=== PATIENT | female | born 1955 | race Caucasian/White ===

== ENCOUNTER 2023-05-18 09:57 | Outpatient (OUT) | payer MEDICARE, OTHER, SELFPAY ==
--- NOTE | 2023-05-18 10:02 | MM_ITS ---
Patient Name: SULEMAN FRY MR#: [id number] : 1955 Exam Date: 05/18/2023 Ordering Doctor: DR SANJUANA LANDA RADIOLOGY REPORT PROCEDURE: MM TOMOSYNTHESIS SCREENING BI COMPARISON: MG MAMM SCREEN 3D ANJUM CAD, 04/16/2022. MG MAMM SCREEN 3D ANJUM CAD, 04/14/2021. INDICATIONS: Screening Calculator Name NCI Breast Cancer Risk Assessment Tool 5 Year Breast Cancer Risk 2.10% Lifetime Breast Cancer Risk 6.90% Personal Breast Cancer No Personal Ovarian Cancer No Treatments None Family Cancers Grandfather-maternal with brain cancer at age ~60; Grandmother-paternal with renal cancer at age ~60. LOCATION: [facility] BREAST COMPOSITION: Heterogeneously dense,which may obscure small masses. FINDINGS: DIAGNOSTIC CATEGORY 1--NEGATIVE. NO CHANGE FROM COMPARISON ASSESSMENT. Scattered benign-appearing calcifications are present. Scattered benign-appearing lymph nodes are present. RIGHT BREAST: No significant suspicious finding. LEFT BREAST: No significant suspicious finding. RECOMMENDATIONS: ROUTINE MAMMOGRAM AND CLINICAL EVALUATION IN 12 MONTHS. PLEASE NOTE: A NORMAL MAMMOGRAM DOES NOT EXCLUDE THE POSSIBILITY OF BREAST CANCER. A CLINICALLY SUSPICIOUS PALPABLE LUMP SHOULD BE BIOPSIED. Dictated by: Kong Valero MD on 05/18/2023 at 14:48 Approved by: Kong Valero MD on 05/18/2023 at 14:49
== END 2023-05-18 09:58 | disposition home or self-care (01) ==
LOC: MAMMO 09:57
PROVIDERS: PCP Physician Assistant; Visit Provider Physician Assistant
DX: Z12.31 Encounter for screening mammogram for malignant neoplasm of breast (principal); Z80.51 Family history of malignant neoplasm of kidney; Z80.8 Family history of malignant neoplasm of other organs or systems
CPT/HCPCS: 77063; 77067

== ENCOUNTER 2023-09-14 09:52 | Outpatient (OUT) | payer MEDICARE, OTHER, SELFPAY ==
--- NOTE | 2023-09-14 09:55 | XR_ITS ---
[place] [id number] Patient Name: SULEMAN FRY MRN: [id number] date: 1955 Sex: F Assigned Patient Location: RAD Current Patient Location: [facility] Accession/Order Number: [id number] Exam Date: 09/14/2023 10:00 Report Date: 09/14/2023 10:26 At the request of: SANJUANA SALCIDO Procedure: XR DEXA axial skeleton EXAMINATION: XR DEXA axial skeleton HISTORY: Estrogen Deficiency E28.39 COMPARISON: DEXA bone densitometry 03/02/2016, 01/13/2021 TECHNIQUE: Dual-energy X-ray absorptiometry (DXA) was performed. FINDINGS: SPINE ANALYSIS: Average bone mineral density is 1.011 g/cm2. T-score (standard deviation relative to young adult mean): -1.4 . -9.9% change since 2015. HIP ANALYSIS: Lowest bone mineral density is within the left femoral neck, 0.755 g/cm2. T-score (standard deviation relative to young adult mean): -2.0 . +1.5% change since 2020. XR/XR DEXA axial skeleton IMPRESSION: [employer] Classification: Osteopenia - Moderate Fracture Risk FRAX: Could not be calculated Electronically authenticated by: NADER FRENCH Date: 09/14/2023 10:26
== END 2023-09-14 09:53 | disposition home or self-care (01) ==
LOC: RAD 09:52
PROVIDERS: PCP Physician Assistant; Visit Provider Physician Assistant
DX: E28.39 Other primary ovarian failure (principal); M85.80 Other specified disorders of bone density and structure, unspecified site
CPT/HCPCS: 77080

== ENCOUNTER 2024-05-29 09:57 | Outpatient (OUT) | payer MEDICARE, OTHER, SELFPAY ==
--- NOTE | 2024-05-29 10:03 | MM_ITS ---
Patient Name: SULEMAN FRY MR#: [id number] : 1955 Exam Date: 05/29/2024 Ordering Doctor: DR SANJUANA LANDA RADIOLOGY REPORT PROCEDURE: MM TOMOSYNTHESIS SCREENING BI COMPARISON: MG MAMM SCREEN 3D ANJUM CAD, 04/16/2022. MM TOMOSYNTHESIS SCREENING BI, 05/18/2023. INDICATIONS: Screening Calculator Name NCI Breast Cancer Risk Assessment Tool 5 Year Breast Cancer Risk 2.20% Lifetime Breast Cancer Risk 6.60% Personal Breast Cancer No Personal Ovarian Cancer No Treatments None Family Cancers Grandfather-maternal with brain cancer at age ~60; Grandmother-paternal with renal cancer at age ~60. LOCATION: [facility] BREAST COMPOSITION: The breasts are heterogeneously dense,which may obscure small masses. FINDINGS: DIAGNOSTIC CATEGORY 1--NEGATIVE. NO CHANGE FROM COMPARISON ASSESSMENT. Scattered benign-appearing calcifications are present. Scattered benign-appearing lymph nodes are present. RIGHT BREAST: No significant suspicious finding. LEFT BREAST: No significant suspicious finding. RECOMMENDATIONS: ROUTINE MAMMOGRAM AND CLINICAL EVALUATION IN 12 MONTHS. PLEASE NOTE: A NORMAL MAMMOGRAM DOES NOT EXCLUDE THE POSSIBILITY OF BREAST CANCER. A CLINICALLY SUSPICIOUS PALPABLE LUMP SHOULD BE BIOPSIED. Dictated by: oKng Valero MD on 05/29/2024 at 13:31 Approved by: Kong Valero MD on 05/29/2024 at 13:34
--- OUTSIDE RECORDS SUMMARY | 2024-05-29 10:05 | XMS_ITS | CCD ---
Author Organization [facility] Inform ion Partnership [facility] Care Team Providers Care Wax Bleacher Name Role Phone LOLY, DR KAVITA Maurer Admitting Unavailable HEMSARA, DR KAVITA Maurer Attending Unavailable IVETTE, DR IYER Primary Care Unavailable WEST, DR RYLEE Ortiz Consulting Unavailable HEMSARA, DR KAVITA Maurer Consulting Unavailable Kavita Connors Primary Care Provider María De La Cruz MD Unavailable María De La Cruz MD Primary Care Provider Kavita Connors Unavailable María De La Cruz MD Unavailable DANA BRADSHAW Attending Unavailable JEYSON COE Attending Unavailable ANA YEBOAH Referring Unavailable KAVITA SALCIDO Attending Unavailable JEYSON COE Attending Unavailable JEYSON COE Attending Unavailable KAVITA SALCIDO Attending Unavailable KAVITA SALCIDO Attending Unavailable KAVITA SALCIDO Attending Unavailable Allergies Allergy Classification Reported Allergen(s) Allergy Type Date of Onset Reaction(s) Facility (1 source) Penicillins Drug allergy (disorder) 02-26-2015 [facility] Repository (16 sources) Penicillins Drug Allergy 08-18-2022 [facility] Work Phone: Medications Current Medications Medication Drug Class(es) Dates Sig (Normalized) Sig (Original) [id number] 200 actuat albuterol 0.09 mg/actuat metered dose inhaler (16 sources) beta2-Adrenergic Agonist Start: 12-29-2022 take 2 puff(s) by inhalation every four hours for wheezing albuterol HFA (ProAir HFA) 90 mcg/act inhaler Indications: SOB (shortness of breath) Inhale 2 puffs every 4 (four) hours if needed for wheezing or shortness of breath. 18 g 5 12/29/2022 Active ALPRAZolam 0.5 mg oral tablet (20 sources) Benzodiazepine Start: 09-08-2023 End: 05-24-2024 take 1 tablet by mouth twice daily as needed for anxiety ALPRAZolam (Xanax) 0.5 MG tablet Indications: Generalized anxiety disorder (CMS/HCC) Take 1 tablet (0.5 mg) by mouth 2 (two) times a day as needed for anxiety 60 tablet 04/24/2024 05/24/2024 Active Start: 05-31-2023 take 1 tablet by anette th twice daily as needed for anxiety ALPRAZolam (Xanax) 0.5 MG tablet Indications: Generalized anxiety disorder (CMS/HCC) Take 1 tablet (0.5 mg) by mouth 2 (two) times a day as needed for anxiety 60 tablet 0 05/31/2023 Active Start: 06-12-2022 End: 05-31-2023 take 1 tablet by mouth every twelve hours ALPRAZolam (Xanax) 0.5 MG tablet Take 0.5 mg by mouth every 12 (twelve) hours. 0 06/12/2022 05/31/2023 Discontinued (Reorder) ARIPiprazole 5 mg oral tablet (16 sources) Atypical Antipsychotic Start: 04-25-2024 take 1.5 tablets by mouth once daily ARIPiprazole (Abilify) 5 MG tablet Indications: Moderate recurrent major depression (CMS/HCC) Take 1.5 tablets (7.5 mg) by mouth Daily 135 tablet 3 04/25/2024 Active Start: 02-04-2024 End: 04-24-2024 take 1 tablet by mouth in the morning ARIPiprazole (Abilify) 5 MG tablet Indications: Moderate recurrent major depression (CMS/HCC) TAKE 1 & 1/2 (ONE AND ONE-HALF) TABLETS BY MOUTH IN THE MORNING 45 tablet 11 02/04/2024 04/24/2024 Discontinued (Side effects) Start: 02-15-2023 take 1.5 tablets by mouth in the morning ARIPiprazole (Abilify) 5 MG tablet Indications: Moderate recurrent major depression (CMS/HCC) Take 1.5 tablets (7.5 mg) by mouth in the morning. 45 tablet 11 02/15/2023 Active b complex vitamins capsule (10 sources) take 1 capsule by mouth once daily b complex vitamins capsule Take 1 capsule by mouth Daily Active 12 hr buPROPion hydrochloride 150 mg extended release oral tablet (16 sources) Aminoketone Start: 07-19-2023 take 1 tablet by mouth twice daily buPROPion SR (Wellbutrin SR) 150 MG 12 hr tablet Indications: Generalized anxiety disorder (CMS/HCC) TAKE 1 TABLET BY MOUTH TWICE A DAY 180 tablet 3 07/19/2023 Active take 1 tablet by naette th every twelve hours in the morning buPROPion SR (Wellbutrin SR) 150 MG 12 h r tablet Take 150 mg by mouth in the morning and 150 mg before bedtime. 0 Active calcium carbonate 1500 mg / cholecalciferol 200 unt oral tablet (16 sources) Vitamin D Start: 03-02-2016 calcium carbonate-vitamin D (Calcium 600+D3) 600-200 MG-UNIT tablet every 12 (twelve) hours. 03/02/2016 Active cholecalciferol 0.05 mg oral capsule (16 sources) Vitamin D cholecalciferol (Vitamin D-3) 50 MCG (1999 UT) capsule 1 capsule 1 (one) time each day at the same time. Active citalopram 40 mg oral tablet (16 sources) Serotonin Reuptake Inhibitor Start: 06-14-2023 take 1 tablet by mouth once daily citalopram (CeleXA) 40 MG tablet Indications: Major depressive disorder, recurrent, moderate (CMS/HCC) TAKE 1 TABLET BY MOUTH EVERY DAY FOR 100 DAYS 90 tablet 4 06/14/2023 Active citalopram (Jolene XA) 40 MG tablet 1 (one) time each day at the same time. 0 Active ezetimibe 10 mg / simvastatin 40 mg oral tablet (16 sources) HMG-CoA Reductase Inhibitor, Dietary Cholesterol Absorption Inhibitor Start: 04-13-2024 take 1 tablet by mouth once daily ezetimibe-simvastatin (Vytorin) 10-40 MG tablet Indications: Benign essential hypertension (CMS/HCC) TAKE 1 TABLET BY MOUTH EVERY DAY 90 tablet 4 04/13/2024 Active Start: 04-20-2023 take 1 tablet by anette th once daily ezetimibe-simvastatin (Vytorin) 10-40 MG tablet Indications: Benign essential hypertension (CMS/HCC) TAKE 1 TABLET BY MOUTH EVERY DAY FOR 90 DAYS 100 tablet 3 04/20/2023 Active fluticasone propionate 0.05 mg/actuat metered dose nasal spray (16 sources) Corticosteroid Start: 01-20-2023 take 1 spray(s) nasal route once daily fluticasone (Flonase) 50 MCG/ACT nasal spray Indications: Seasonal allergic rhinitis due to pollen USE 1 SPRAY IN EACH NOSTRIL ONCE EVERYDAY AT THE SAME TIME 16 mL 5 01/20/2023 Active hydroCHLOROthiazide 12.5 mg oral tablet (9 sources) Thiazide Diuretic Start: 05-28-2023 End: 01-03-2024 take 1 tablet by mouth once daily in the morning hydroCHLOROthiazide (HYDRODiuril) 12.5 MG tablet Indications: Benign essential hypertension (CMS/HCC) TAKE 1 TABLET BY MOUTH EVERY DAY IN THE MORNING FOR 90 DAYS 90 tablet 3 05/28/2023 01/03/2024 Discontinued (Therapy completed) hydroCHLOROthiaz iveth (HYDRODiuril) 12.5 MG tablet 1 (one) time each day at the same time. 0 Active hydroCHLOROthiazide 12.5 mg / irbesartan 150 mg oral tablet (16 sources) Thiazide Diuretic, Angiotensin 2 Receptor Betzy Start: 03-03-2024 take 1 tablet by mouth once daily irbesartan-hydroCHLOROthiazide (Avalide) 150-12.5 MG tablet Indications: Benign essential hypertension (CMS/HCC) TAKE 1 TABLET BY MOUTH EVERY DAY 90 tablet 4 03/03/2024 Active Start: 03-16-2023 take 1 tablet by anette once daily irbesartan-hydroCHLOROthiazide (Avalide) 150-12.5 MG tablet Indications: Benign essential hypertension (CMS/HCC) TAKE 1 TABLET BY MOUTH EVERY DAY FOR 90 DAYS 100 tablet 3 03/16/2023 Active ketorolac tromethamine 5 mg/ml ophthalmic solution (4 sources) Nonsteroidal Anti-inflammatory Drug, Cyclooxygenase Inhibitor Start: 05-27-2023 End: 06-26-2023 take 1 drop(s) into the eye(s) in the morning ketorolac (Acular) 0.5 % ophthalmic solution Indications: Age-related nuclear cataract of both eyes Administer 1 drop into affected eye(s) in the morning and 1 drop before bedtime. 5 mL 1 05/27/2023 06/26/2023 Active loratadine 10 mg oral tablet (16 sources) loratadine (Claritin) 10 MG tablet 1 (one) time each day at the same time. Active Magnesium (9 sources) take 1 tablet by mouth once daily Magnesium 400 MG capsule Take 1 tablet by mouth 1 (one) time each day Active Multiple Vitamin (MULTIVITAMINS PO) (16 sources) take 1 tablet by mouth once daily Multiple Vitamin (MULTIVITAMINS PO) Take 1 tablet by mouth 1 (one) time each day. Active take 1 tablet by mouth once alexandre y Multiple Vitamin (MULTIVITAMINS PO) Take 1 tablet by mouth 1 (one) time each day. 0 Active omeprazole 40 mg delayed release oral capsule (16 sources) Proton Pump Inhibitor Start: 06-14-2023 take 1 capsule by mouth once daily omeprazole (PriLOSEC) [address] capsule Indications: Gastro-esophageal reflux disease without esophagitis TAKE 1 CAPSULE BY MOUTH EVERY DAY 90 capsule 4 06/14/2023 Active omeprazole (PriL OSEC) [address] capsule 1 capsule 1 (one) time each day at the same time. 0 Active 24 hr oxybutynin chloride 10 mg extended release oral tablet (16 sources) Cholinergic Muscarinic Antagonist Start: 03-13-2024 take 1 tablet by mouth once daily oxybutynin XL (Ditropan-XL) 10 MG 24 hr tablet Indications: Overactive bladder TAKE 1 TABLET BY MOUTH EVERY DAY FOR 100 DAYS 90 tablet 4 03/13/2024 Active Start: 03-01-2023 take 1 tablet by anette th once daily oxybutynin XL (Ditropan-XL) 10 MG 24 hr tablet Indications: Overactive bladder TAKE 1 TABLET BY MOUTH EVERY DAY FOR 100 DAYS 100 tablet 3 03/01/2023 Active prednisoLONE acetate 10 mg/ml ophthalmic suspension (4 sources) Corticosteroid Start: 05-27-2023 End: 06-10-2023 prednisoLONE acetate (Pred-Forte) 1 % ophthalmic suspension Indications: Age-related nuclear cataract of both eyes Administer 1 drop into both eyes in the morning and 1 drop at noon and 1 drop in the evening and 1 drop before bedtime. Do all this for 14 days. 5 mL 1 05/27/2023 06/10/2023 Active predniSONE 10 mg oral tablet (2 sources) Start: 01-03-2024 End: 01-08-2024 take 1 tablet by mouth in the morning predniSONE (Deltasone) 10 MG tablet Indications: Acute cough Take 1 tablet (10 mg) by mouth in the morning and 1 tablet (10 mg) before bedtime. Do all this for 5 days. 10 tablet 01/03/2024 01/08/2024 Active terbinafine 250 mg oral tablet (2 sources) Allylamine Antifungal Start: 05-22-2024 take 1 tablet by mouth once daily terbinafine (LamISIL) 250 MG tablet Indications: Onychomycosis Take 1 tablet by mouth, once daily. 90 day supply 90 tablet 05/22/2024 Active Start: 05-22-2024 take 1 tablet by anette th once daily terbinafine (LamISIL) 250 MG tablet Indications: Onychomycosis Take 1 tablet by mouth, once daily. 90 day supply 90 tablet 05/22/2024 Active valACYclovir 1000 mg oral tablet (6 sources) Herpesvirus Nucleoside Analog DNA Polymerase Inhibitor, Herpes Simplex Virus Nucleoside Analog DNA Polymerase Inhibitor, Herpes Zoster Virus Nucleoside Analog DNA Polymerase Inhibitor Start: 05-22-2024 End: 05-23-2024 valACYclovir (Valtrex) 1 g tablet Indications: Cold sore Take 2 tablets twice a day x 1 day at first start of outbreak, 1 day supply 4 tablet 4 05/22/2024 05/22/2024 Discontinued Start: 05-22-2024 End: 05-22-2024 take 1 tablet by mouth in the morning valACYclovir (Valtrex) 1 g tablet Indications: Cold sore Take 1 tablet (1,000 mg) by mouth in the morning and 1 tablet (1,000 mg) before bedtime. Do all this for 1 day. 2 tablet 4 05/22/2024 05/22/2024 Discontinued Completed/Discontinued Medications Medication Drug Class(es) Dates Sig (Normalized) Sig (Original) brexpiprazole 1 mg oral tablet (3 sources) Atypical Antipsychotic Start: 04-24-2024 End: 04-25-2024 take 1 tablet by mouth once daily Brexpiprazole (Rexulti) 1 MG tablet Indications: Moderate recurrent major depression (CMS/HCC) Take 1 mg by mouth Daily 30 tablet 2 04/24/2024 04/25/2024 Discontinued (Cost of medication) Start: 04-24-2024 take 1 tablet by anette th once daily Brexpiprazole (Rexulti) 1 MG tablet Indications: Moderate recurrent major depression (CMS/HCC) Take 1 mg by mouth Daily 30 tablet 2 04/24/2024 Active ofloxacin 3 mg/ml ophthalmic solution (3 sources) Quinolone Antimicrobial Start: 05-27-2023 End: 05-31-2023 take 1 drop(s) into the eye(s) five times daily ofloxacin (Ocuflox) 0.3 % ophthalmic solution Indications: Age-related nuclear cataract of both eyes Administer 1 drop into the right eye 5 (five) times a day for 1 day Starting 1 day before surgery, continue after surgery as directed 5 mL 1 05/27/2023 05/31/2023 Discontinued (Therapy completed) Problems Active Problems Problem Classification Problem Date Documented Date Episodic/Chronic Anxiety disorders (20 sources) Generalized anxiety disorder; Translations: [Generalized anxiety disorder] Onset: 08-18-2022 08-18-2022 Chronic Cataract (20 sources) Bilateral age-related nuclear cataracts; Translations: [Age-related nuclear cataract, bilateral] Onset: 05-27-2023 Resolved: 09-08-2023 05-27-2023 Chronic Disorders of lipid metabolism (20 sources) Raised low density lipoprotein cholesterol; Translations: [Pure hypercholesterolemia, unspecified] Onset: 04-21-2019 Resolved: 09-08-2023 08-18-2022 Chronic Esophageal disorders (16 sources) Gastroesophageal reflux disease without esophagitis; Translations: [Gastro-esophageal reflux disease without esophagitis] Onset: 08-18-2022 08-18-2022 Chronic Essential hypertension (20 sources) Benign essential hypertension; Translations: [Essential (primary) hypertension] Onset: 08-18-2022 08-18-2022 Chronic Menopausal disorders (20 sources) Disorder associated with menstruation AND/OR menopause; Translations: [Unspecified menopausal and perimenopausal disorder] Onset: 08-18-2022 Resolved: 09-08-2023 08-18-2022 Chronic Mood disorders (19 sources) Recurrent major depressive episodes, moderate ; Translations: [Major depressive disorder, recurrent, moderate] Onset: 08-18-2022 08-18-2022 Chronic Mycoses (2 sources) Onychomycosis; Translations: [Tinea unguium] 05-22-2024 Episodic Other circulatory disease (2 sources) Spider nevus; Translations: [Nevus, non-neoplastic] 05-22-2024 Episodic Other diseases of bladder and urethra (16 sources) Overactive bladder; Translations: [Overactive bladder] Onset: 08-18-2022 08-18-2022 Chronic Other endocrine disorders (16 sources) Hypoglycemia; Translations: [Hypoglycemia, unspecified] Onset: 08-18-2022 08-18-2022 Chronic Other lower respiratory disease (2 sources) Cough; Translations: [Acute cough] 01-03-2024 Episodic Other screening for suspected conditions (not mental disorders or infectious disease) (6 sources) Encounter for screening mammogram for malignant neoplasm of breast; Translations: [Patient encounter status] Onset: 04-16-2022 Episodic Other skin disorders (2 sources) Seborrheic keratosis; Translations: [Other seborrheic keratosis] 05-22-2024 Episodic Other skin disorders (2 sources) Lentiginosis; Translations: [Other melanin hyperpigmentation] 05-22-2024 Episodic Other upper respiratory disease (16 sources) Allergic rhinitis due to pollen; Translations: [Allergic rhinitis due to pollen] Onset: 08-18-2022 08-18-2022 Chronic Residual codes; unclassified (1 source) Family history of malignant neoplasm of kidney; Translations: [FAM HX MALIGNANT NEOPLASM KIDNEY] Onset: 04-21-2022 Episodic Residual codes; unclassified (1 source) Family history of malignant neoplasm of other organs or systems; Translations: [FAM HX MALIG NEOPLASM OTH ORGN/SYS] Onset: 04-21-2022 Episodic Retinal detachments; defects; vascular occlusion; and retinopathy (15 sources) Epiretinal membrane of right eye; Translations: [Puckering of macula, right eye] Onset: 05-27-2023 05-27-2023 Chronic Viral infection (2 sources) Herpes labialis; Translations: [Herpesviral vesicular dermatitis] 05-22-2024 Episodic Past or Other Problems Problem Classification Problem Date Documented Da te Episodic/Chronic Allergic reactions (16 sources) Allergic disorder of skin; Translations: [Allergic contact dermatitis, unspecified cause] Onset: 08-18-2022 08-18-2022 Episodic Mood disorders (10 sources) Mood disorders Onset: 05-15-2024 05-22-2024 Other bone disease and musculoskeletal deformities (16 sources) Osteopenia; Translations: [Other specified disorders of bone density and structure, multiple sites] Onset: 08-18-2022 08-18-2022 Episodic Other liver diseases (16 sources) Elevated liver enzymes level; Translations: [Abnormal levels of other serum enzymes] Onset: 08-18-2022 08-18-2022 Episodic Other lower respiratory disease (16 sources) Dyspnea; Translations: [Shortness of breath] Onset: 12-29-2022 12-29-2022 Episodic Other lower respiratory disease (16 sources) Persistent cough; Translations: [Persistent cough] Onset: 12-29-2022 12-29-2022 Episodic Other non-traumatic joint disorders (16 sources) Derangement of right shoulder joint; Translations: [Other specific joint derangements of right shoulder, not elsewhere classified] Onset: 08-18-2022 Resolved: 05-31-2023 08-18-2022 Chronic Results Test Name Value Interpretation Reference Range Facil ity Optical coherence tomography study reporton 05-27-2023 [email or web address] Radiology Study observation (narrative) [employer] US Eye+Orbit - bilateralon 0 05-27-2023 Diagnosis: Cataract both eyes (OU) Testing Indication: Performed for preop measurements in the determination of an intraocular lens (IOL) for both eyes (OU) Test Reliability: Good quality both eyes (OU) Interpretation: Good measurements for intraocular lens (IOL) calculation purposes. Calculation made for both eyes (OU). [employer] Radiology Study observation (narrative) [employer] MAMM SCREEN 3D ANJUM CADon 04-16-2022 MG MAMM SCREEN 3D ANJUM CAD Patient: SULEMAN FRY Exam Date: 04/16/2022 : 1955 Gender:F Ordering : DR KAVIAT SALCIDO PA Admission #: [id number] Family : Order #: [id number] CLICK HERE TO VIEW EXAM RADIOLOGY REPORT PROCEDURE: MAMMOGRAM SCREENING 3D BILATERAL CAD COMPARISON: MG MAMM SCREEN 3D ANJUM CAD, 04/14/2021. MG MAMM SCREEN ANJUM W CAD, 04/09/2020. INDICATIONS: Screening mammography Calculator Name NCI Breast Cancer Risk Assessment Tool 5 Year Breast Cancer Risk 2.10% Lifetime Breast Cancer Risk 7.20% Personal Breast Cancer No Personal Ovarian Cancer No Treatments None Family Cancers Grandfather-maternal with brain cancer at age 60; Grandmother-paternal with renal cancer at age 60. LOCATION: [facility] BREAST COMPOSITION: Heterogeneously dense,which may obscure small masses. FINDINGS: DIAGNOSTIC CATEGORY 1--NEGATIVE. NO CHANGE FROM COMPARISON ASSESSMENT. Scattered benign-appearing calcifications are present. Scattered benign-appearing lymph nodes are present. RIGHT BREAST: No significant suspicious finding. LEFT BREAST: No significant suspicious finding. RECOMMENDATIONS: ROUTINE MAMMOGRAM AND CLINICAL EVALUATION IN 12 MONTHS. PLEASE NOTE: A NORMAL MAMMOGRAM DOES NOT EXCLUDE THE POSSIBILITY OF BREAST CANCER. A CLINICALLY SUSPICIOUS PALPABLE LUMP SHOULD BE BIOPSIED. Dictated by: Rylee Valero MD on 04/16/2022 at 15:42 Approved by: Rylee Valero MD on 04/16/2022 at 15:44 Normal [facility] Consent for COVID Vaccineon 07-20-2020 SARS-CoV-2 (COVID-19) RNA ZAY+probe Ql (Unsp spec) [id number] .00CD:127 Normal [facility] Consent for COVID Vaccineon 06-15-2020 SARS-CoV-2 (COVID-19) RNA ZAY+probe Ql (Unsp spec) [id number]. 00CD:127 Normal [facility] Consent for Treatmenton 05-21 Consent for Treatment [id number]. 00CD:127 Normal [facility] Coding Summary.on 06-13-2020 Coding Summary. CODING DATE: 06/13/2020 FINAL [facility] STATUS: PAYOR: Medicare APC DESCRIPTION [employer] - Level 1B ($11-$20) ADMIT DX: REASON FOR VISIT DX: Z23 Encounter for immunization FINAL DX: PRINCIPAL: Z23 Encounter for immunization SECONDARY: PYMT PROC APC STAT DESCRIPTION DOCTOR NAME DATE NOTE: The code number assigned matches the documented diagnosis and / or procedure in the patient's chart. However, the narrative phrase printed from the coding software may appear abbreviated, or result in slightly different terminology. Coded By: Pascale Elmore CphT Date Saved: 06/13/2020 11:47 am [facility] Vital Signs Date Time Vital Sign Value Performing Clinician Red wren 04-24-2024 09:53-0500 Diastolic blood pressure 82 mm[Hg] Kavita Hemmer PA Work Phone: [facility] 04-24-2024 09:53-0500 Systolic blood pressure 138 mm[Hg] Kavita Hemmer PA Work Phone: [facility] 04-24-2024 09:32-0500 Body height 170.2 cm Kavita Hemmer PA Work Phone: [facility] 04-24-2024 09:32-0500 Body mass index (BMI) [Ratio] 23.74 kg/m2 Kavita Hemmer PA Work Phone: [facility] 04-24-2024 09:32-0500 Body weight 68.77 kg Kavita Hemmer PA Work Phone: [facility] 04-24-2024 09:32-0500 Heart rate 81 /min Kavita Hemmer PA Work Phone: [facility] 04-24-2024 09:32-0500 Respiratory rate 16 /min Kavita Hemmer PA Work Phone: [facility] 04-24-2024 09:32-0500 SaO2% (BldA) [Mass fraction] 97 % Kavita Hemmer PA Work Phone: [facility] 01-03-2024 11:26-0400 Body height 170.2 cm Kavita Hemmer PA Work Phone: [facility] 01-03-2024 11:26-0400 Body mass index (BMI) [Ratio] 22.65 kg/m2 Kavita Hemmer PA Work Phone: [facility] 01-03-2024 11:26-0400 Body weight 65.59 kg Kavita Hemmer PA Work Phone: [facility] 01-03-2024 11:26-0400 Diastolic blood pressure 76 mm[Hg] Kavita Hemmer PA Work Phone: [facility] 01-03-2024 11:26-0400 Heart rate 80 /min Kavita Hemmer PA Work Phone: [facility] 01-03-2024 11:26-0400 Respiratory rate 16 /min Kavita Hemmer PA Work Phone: [facility] 01-03-2024 11:26-0400 SaO2% (BldA) [Mass fraction] 98 % Kavita Hemmer PA Work Phone: [facility] 01-03-2024 11:26-0400 Systolic blood pressure 122 mm[Hg] Kavita Hemmer PA Work Phone: [facility] 05-31-2023 15:06-0500 Body mass index (BMI) [Ratio] 23.49 kg/m2 Kavita Hemmer PA Work Phone: [facility] 05-31-2023 15:06-0500 Body weight 68.04 kg Kavita Hemmer PA Work Phone: [facility] 05-31-2023 15:06-0500 Diastolic blood pressure 82 mm[Hg] Kavita Hemmer PA Work Phone: [facility] 05-31-2023 15:06-0500 Heart rate 82 /min Kavita Hemmer PA Work Phone: [facility] 05-31-2023 15:06-0500 Respiratory rate 16 /min Kavita Hemmer PA Work Phone: [facility] 05-31-2023 15:06-0500 SaO2% (BldA) [Mass fraction] 98 % Kavita Hemmer PA Work Phone: [facility] 05-31-2023 15:06-0500 Systolic blood pressure 116 mm[Hg] Kavita Hemmer PA Work Phone: [facility] Encounters Encounter Date Encounter Type Care Provider Facility Start: 05-22-2024 End: 05-22-2024 Bamboo flowsheet Dana Bradshaw MANAGER ANIMATION-FINISHING POWDER PRESS OPERATOR Work Phone: [facility] Start: 05-22-2024 End: 05-22-2024 Bamboo flowsheet Dana Bradshaw MANAGER ANIMATION-FINISHING POWDER PRESS OPERATOR Work Phone: [facility] Start: 05-22-2024 End: 05-22-2024 Office outpatient visit 25 minutes Dana Bradshaw MANAGER ANIMATION-FINISHING POWDER PRESS OPERATOR Work Phone: [facility] Comment on above: Cold sore (Primary D x); Seborrheic keratosis; Lentigines; Capillary angioma; Onychomycosis Start: 05-22-2024 End: 05-22-2024 ambulatory DANA BRADSHAW Not Available Start: 04-25-2024 End: 04-25-2024 Telephone encounter María De La Cruz MD Work Phone: [facility] Start: 04-24-2024 End: 04-24-2024 Bamboo flowsheet Kavita Salcido PA Work Phone: [facility] Start: 04-24-2024 End: 04-24-2024 Bamboo flowsheet Kavita Salcido PA Work Phone: [facility] Start: 04-24-2024 End: 04-24-2024 Office outpatient visit 25 minutes Kavita Salcido PA Work Phone: [facility] Comment on above: Benign essential hyp ertension (CMS/HCC) (Primary Dx); Encounter for screening mammogram for malignant neoplasm of breast; Generalized anxiety disorder (CMS/HCC); Moderate recurrent major depression (CMS/HCC) Start: 04-24-2024 End: 04-24-2024 ambulatory KAVITA SALCIDO Not Available Start: 01-03-2024 End: 01-03-2024 Bamboo flowsheet Kavita Salcido PA Work Phone: [facility] Start: 01-03-2024 End: 01-03-2024 Bamboo flowsheet Kavita Salcido PA Work Phone: [facility] Start: 01-03-2024 End: 01-03-2024 Office outpatient visit 25 minutes Kavita Salcido PA Work Phone: [facility] Comment on above: Benign essential hyp ertension (CMS/HCC) (Primary Dx); Generalized anxiety disorder (CMS/HCC); Acute cough Start: 01-03-2024 End: 01-03-2024 ambulatory KAVITA SALCIDO Not Available Start: 09-08-2023 End: 09-08-2023 ambulatory KAVITA SALCIDO Not Available Start: 07-16-2023 End: 07-16-2023 ambulatory JEYSON COE Not Available Start: 06-09-2023 End: 06-09-2023 ambulatory JEYSON COE Not Available Start: 05-31-2023 End: 05-31-2023 Office outpatient visit 25 minutes Kavita Salcido PA Work Phone: [facility] Comment on above: Benign essential hyp ertension (CMS/HCC) (Primary Dx); Generalized anxiety disorder (CMS/HCC); Age-related nuclear cataract of both eyes Start: 05-31-2023 End: 05-31-2023 ambulatory KAVITA SALCIDO Not Available Start: 05-31-2023 Bamboo flowsheet Kavita Maurer Hemme r PA Work Phone: [facility] Start: 05-31-2023 Bamboo flowsheet Kavita Maurer Hemme r PA Work Phone: [facility] Start: 05-27-2023 Bamboo flowsheet Jeyson brooks DO Work Phone: [facility] Start: 05-27-2023 Bamboo flowsheet Jeyson brooks DO Work Phone: [facility] Start: 05-27-2023 End: 05-27-2023 ambulatory JEYSON COE Not Available Start: 05-22-2023 Chart abstracting Kavita Hunter er PA Work Phone: [facility] Start: 04-16-2022 End: 04-17-[address] KAVITA SALCIDO Facility: Procedures Date Procedure Procedure Detail Performing Clinician Start: 05-27-2023 Computerized ophthal gregory imaging retina Jeyson Coe DO Work Phone: Start: 05-27-2023 Oph bmtry prtl coher intrfrmtry io lens pwr mae Jeyson Coe DO Work Phone: Start: 05-27-2023 End: 05-27-2023 Ophth medical xm&eval katiee new pt 1/> vst Age-related nuclear cataract of both eyes Jeyson Coe DO Work Phone: Comment on above: Age-related nuclear cataract of both eyes (Primary Dx); Epiretinal membrane (ERM) of right eye Start: 05-18-2023 Mammography Kavita LANDA Work Phone: Start: 07-05-2017 Colonoscopy Kavita LANDA Work Phone: Plan of Treatment Date Care Activity Detail Author Start: 07-06-2027 Screening for malign ant neoplasm of colon [facility] Start: 05-22-2025 End: 05-22-2025 Patient encounter procedure 05/22/2025 10:05 AM EST Office Visit [facility] [address] [place] [id number] Dana Bradshaw, MANAGER ANIMATION-FINISHING POWDER PRESS OPERATOR [address] [place] [address] [facility] Start: 07-24-2024 End: 07-24-2024 Patient encounter procedure 07/24/2024 10:00 AM EDT Office Visit [facility] [address] [place] [address] Kavita Salcido PA [address] [place] [address] [facility] Start: 05-22-2024 End: 05-22-2024 Patient encounter procedure [facility] Comment on above: Arrived Start: 05-18-2024 End: 06-22-2025 DBT Breast - bilateral screening Bilateral screening mammogram with tomosynthesis Imaging Routine Encounter for screening mammogram for malignant neoplasm of breast Expected: 05/18/2024, Expires: 06/22/2025 [facility] Work Phone: Comment on above: Expected: 05/18/2024 , Expires: 06/22/2025 Start: 05-18-2024 Screening for malign ant neoplasm of breast Mammogram [facility] Start: 04-24-2024 End: 04-24-2024 Patient encounter procedure 04/24/2024 9:30 AM EST Office Visit [facility] [address] [place] [address] Kavita Salcido PA [address] [place] [address] Arrived [facility] Comment on above: Arrived Start: 04-03-2024 End: 04-03-2024 Patient encounter procedure 04/03/2024 10:30 AM EST Office Visit [facility] [address] [place] [address] Kavita Salcido PA [address] [place] [address] [facility] Start: 02-03-2024 Pneumococcal Vaccine : 65+ Years (1 - PCV) Pneumococcal Vaccine: 65+ Years (1 - PCV) [facility] Comment on above: Postponed from 04/02 (Patient Refused) Start: 02-03-2024 Pneumococcal Vaccine : 65+ Years (1 of 1 - PCV) Pneumococcal Vaccine: 65+ Years (1 of 1 - PCV) [facility] Comment on above: Postponed from 04/02 (Patient Refused) Start: 01-03-2024 End: 01-03-2024 Patient encounter procedure 01/03/2024 11:30 AM EDT Office Visit [facility] [address] [place] [address] Kavita Salcido PA [address] [place] [address] Arrived [facility] Comment on above: Arrived Start: 12-19-2023 Influenza vaccination Influenza Vacc ine (#1) [facility] Start: 08-30-2023 End: 08-30-2023 Patient encounter procedure 08/30/2023 11:30 AM EDT Office Visit [facility] [address] [place] [address] Kavita Salcido PA [address] [place] [address] [facility] Start: 07-19-2023 End: 07-19-2023 Patient encounter procedure 07/19/2023 8:05 AM EDT Procedure Visit [facility] Jeysno Coe, DO [address] [place] [address] [facility] Start: 06-29-2023 End: 06-29-2023 Patient encounter procedure 06/29/2023 9:30 AM EDT Procedure Visit [facility] Jeyson Coe, DO [address] [place] [address] [facility] Start: 06-09-2023 End: 06-09-2023 Patient encounter procedure 06/09/2023 9:45 AM EST Office Visit [facility] [address] [place] [id number] Jeyson Coe, DO [address] [place] [address] [facility] Start: 05-31-2023 End: 05-31-2023 Patient encounter procedure [facility] Comment on above: Arrived Start: 05-27-2023 End: 05-27-2023 Patient encounter procedure [facility] Comment on above: Arrived Start: 2020 Pneumococcal Vaccine : 65+ Years (1 of 1 - PCV) Pneumococcal Vaccine: 65+ Years (1 of 1 - PCV) [facility] Start: 1955 Screening for malign ant neoplasm of colon [facility] Immunizations Immunization Date Immunization Notes Care Provider Fa cility 02-23-2023 zoster vaccine recombinant Kavita Hemmer PA Work Phone: [facility] 02-02-2023 influenza, seasonal, injectable Kavita Hemmer PA Work Phone: [facility] 02-02-2023 influenza virus vacc ine, unspecified formulation Kavita Hemmer PA Work Phone: [facility] 02-17-2022 Influenza, High-dose Seasonal, Quadrivalent, Preservative Free Kavita Hemmer PA Work Phone: [facility] 02-17-2022 Moderna SARS-CoV-2 Vaccination Kavita Hemmer PA Work Phone: [facility] 02-04-2021 influenza, injectabl e, quadrivalent, preservative free Kavita Hemmer PA Work Phone: [facility] 01-22-2020 influenza, injectabl e, quadrivalent, preservative free Kavita Hemmer PA Work Phone: [facility] 06-15-2018 influenza, seasonal, injectable, preservative free Kavita Hemmer PA Work Phone: [facility] 01-18-2017 influenza virus vacc ine, split virus (incl. purified surface antigen) Kavita Hemmer PA Work Phone: [facility] 07-20-2015 zoster vaccine, live Kavita fish PA Work Phone: [facility] Payers Date Payer Category Payer Private Health Insurance [employer] [id number] 2021 Unknown [employer] [id number] 2021-Present [address] [place] [address] [id number] 2020 Medicare [id number] 1959 Medicare [id number] 1959 Unknown [id number] 1955 Unknown [id number] 1955 Unknown [id number] 1259 1955 Unknown [id number] 1259 1955 Unknown [id number] 1259 1955 Unknown [id number] 1259 1955 Unknown [id number] 1259 1955 Unknown [id number] 1259 1955 Unknown [id number] 1259 1955 Unknown [id number] 1259 Social History Date Type Detail Facility Start: 09-08-2022 Tobacco smoking status PRIS Never smoked tobacco [facility] Start: 09-08-2022 End: 05-22-2024 Tobacco use and exposure Smokeless tobacco non-user [facility] Start: 05-20-2023 End: 05-22-2024 Alcohol intake Current drinker of alcohol (finding) [facility] Start: 12-24-2022 End: 04-17-2024 History of Social function [facility] Start: 12-24-2022 End: 04-17-2024 Humiliation, Afraid, Rape, and Kick questionnaire [HARK] [facility] Within the last year , have you been afraid of your partner or ex-partner? No [facility] Do you belong to any clubs or organizations such as jehovah's witness groups, unions, fraternal or athletic groups, or school groups? Yes [facility] Are you now , , , , never or living with a partner? [facility] How often to you hav e a drink containing alcohol? Monthly or less [facility] How many standard dr inks containing alcohol do you have on a typical day? 1 or 2 [facility] How often do you hav e 6 or more drinks on 1 occasion? Never [facility] How hard is it for y ou to pay for the very basics like food, housing, medical care, and heating Not very hard [facility] Do you feel stress - tense, restless, nervous, or anxious, or unable to sleep at night because your mind is troubled all the time - these days [OSQ] Very much [facility] (I/We) worried wheth er (my/our) food would run out before (I/we) got money to buy more. Never true [facility] In the past 12 month s, has lack of transportation kept you from medical appointments or from getting medications? No [facility] Start: 12-28-2022 Alcohol Comment Caffeine intake : yes, coffee [facility] Start: 1955 Sex Assigned At Not on file [facility] Start: 05-27-2023 End: 05-22-2024 Tobacco smoking status [facility] Ex-smoker [facility] Work Phone: Start: 04-27-1975 End: 05-20-1985 History of tobacco use Current smoker [facility] Start: 04-27-1975 End: 05-20-1985 History of tobacco use Cigarette Smoker [facility] Do you feel stress - tense, restless, nervous, or anxious, or unable to sleep at night because your mind is troubled all the time - these days [OSQ] To some extent [facility] Clinical Notes 05-27-2023 to 05-22-2024 Dana Bradshaw MANAGER ANIMATION-FINISHING POWDER PRESS OPERATOR - 05/22/2024 10:05 AM ESTTelephone Encounter - SYEDA Buchanan - 04/25/2024 4:29 PM ESTTelephone Encounter - SOCO BROWN - 04/25/2024 2:55 PM EST Note Date & Type Note Facility 05-22-2024 History of Presen t illness Narrative Skin Check Location: Patient requests a full body skin examination Dermatologic history: no history of skin cancer, no history of atypical moles, no family history of melanoma Last visit: 1 year ago Established patient All pertinent medical history, medications, and allergies were reviewed. General Exam: alert, oriented to person, place, and time, normal affect, well appearing Scalp, Examined Right leg Examined Head, Face Examined Left leg Examined Neck Examined Right foot Examined Chest Examined Left foot Examined Back Examined Buttocks Examined Abdomen Examined Digits,nails: Examined Right arm Examined Left arm Examined Hands Examined 1. Cold sore Mid [place] Lip Grouped vesicles and erosions on an erythematous base It was explained to the patient that herpes simplex is a common viral infection of the skin. It is contagious and can be easily spread by contact. It was explained that the infection is not curable and recurrence is common. The patient was informed that treatment with an anti-viral medication taken at the first sign of an outbreak can shorten the outbreak and relieve symptoms. If occurrences are frequent, an anti-viral medication taken daily may be beneficial. Start Valtrex 2,000 mg every day x 1 day. Repeat on one week Related Medications valACYclovir (Valtrex) 1 g tablet Take 2 tablets (2,000 mg) by mouth in the morning and 2 tablets (2,000 mg) before bedtime. Do all this for 1 day. 2. Seborrheic keratosis Stuck on verrucous, sethi-brown papules and plaques. Patient was counseled regarding these benign growths. Removal is normally not necessary, but they may be removed if they are symptomatic or for cosmetic reasons. 3. Lentigines Scattered sethi macules in sun-exposed areas. The patient was informed that lentigines are benign pigmented lesions that occur on sun-exposed and sun-damaged skin. No treatment is necessary. Recommended regular use of broad spectrum sunscreen SPF 30 or higher 4. Capillary angioma Scattered mayorga-red papule(s). The patient was informed that angiomas are benign growths on the the skin. No treatment is necessary. 5. Onychomycosis (2) Left Hallux Toenail, Right Hallux Toenail Subungual hyperkeratosis with nail thickening The patient was informed that onychomycosis is a fungal infection of the nails. It can be treated with topical or oral antifungal agents. Recurrence can occur despite treatment in some cases. The goal is to grow out a normal nail which can take several months to occur. Start Lamisil 250 mg every day x 90 days. Related Medications terbinafine (LamISIL) 250 MG tablet Take 1 tablet by mouth, once daily. 90 day supply Next Visit: 1 year, skin check documented in this encounter [facility] 04-25-2024 Miscellaneous Notes Formattin g of this note might be different from the original. New Abilify Rx sent. Patient called and asked if you could just change her back to the abilify because the cost of the rexulti is $386.00 out of pocket. She will need a new RX for the Abilify to be sent to [facility] in [place]. documented in this encounter [facility] 04-25-2024 Telephone encount er Note New Abilify Rx sent. [facility] 04-25-2024 Telephone encount er Note Patient called and asked if you could just change her back to the abilify because the cost of the rexulti is $386.00 out of pocket. She will need a new RX for the Abilify to be sent to [facility] in [place]. [facility] 04-24-2024 History of Presen t illness Narrative Images from the original note were not included. HPI Med Refill Additional comments: Alprazolam Last edited by Sylvia Salcido LPN on 04/24/2024 9:32 AM. Subjective Patient ID: Suleman Fry is a 69 y.o. female who presents for anxiety. Suleman is present today for follow up anxiety. She is currently on Alprazolam as needed and is working well for her. Using her exercise bike for 35-40 minutes a day. Is being careful with her diet, but is gaining weight. Current Outpatient Medications on File Prior to Visit Medication Sig Dispense Refill albuterol HFA (ProAir HFA) 90 mcg/act inhaler Inhale 2 puffs every 4 (four) hours if needed for wheezing or shortness of breath. 18 g 5 ALPRAZolam (Xanax) 0.5 MG tablet Take 1 tablet (0.5 mg) by mouth 2 (two) times a day as needed for anxiety 60 tablet 0 b complex vitamins capsule Take 1 capsule by mouth Daily buPROPion SR (Wellbutrin SR) 150 MG 12 hr tablet TAKE 1 TABLET BY MOUTH TWICE A DAY 180 tablet 3 calcium carbonate-vitamin D (Calcium 600+D3) 600-200 MG-UNIT tablet every 12 (twelve) hours. cholecalciferol (Vitamin D-3) 50 MCG (2000 UT) capsule 1 capsule 1 (one) time each day at the same time. citalopram (CeleXA) 40 MG tablet TAKE 1 TABLET BY MOUTH EVERY DAY FOR 100 DAYS 90 tablet 4 ezetimibe-simvastatin (Vytorin) 10-40 MG tablet TAKE 1 TABLET BY MOUTH EVERY DAY 90 tablet 4 fluticasone (Flonase) 50 MCG/ACT nasal spray USE 1 SPRAY IN EACH NOSTRIL ONCE EVERYDAY AT THE SAME TIME 16 mL 5 irbesartan-hydroCHLOROthiazide (Avalide) 150-12.5 MG tablet TAKE 1 TABLET BY MOUTH EVERY DAY 90 tablet 4 loratadine (Claritin) 10 MG tablet 1 (one) time each day at the same time. Magnesium 400 MG capsule Take 1 tablet by mouth 1 (one) time each day Multiple Vitamin (MULTIVITAMINS PO) Take 1 tablet by mouth 1 (one) time each day. omeprazole (PriLOSEC) [address] capsule TAKE 1 CAPSULE BY MOUTH EVERY DAY 90 capsule 4 oxybutynin XL (Ditropan-XL) 10 MG 24 hr tablet TAKE 1 TABLET BY MOUTH EVERY DAY FOR 100 DAYS 90 tablet 4 [DISCONTINUED] ARIPiprazole (Abilify) 5 MG tablet TAKE 1 & 1/2 (ONE AND ONE-HALF) TABLETS BY MOUTH IN THE MORNING 45 tablet 11 No current facility-administered medications on file prior to visit. I have reviewed and reconciled the history and medication list with the patient today. Allergies Allergen Reactions Penicillins Rash Social History Tobacco Use Smoking status: Former Current packs/day: 0.00 Average packs/day: 2.0 packs/day for 10.1 years (20.1 ttl pk-yrs) Types: Cigarettes Start date: 04/27/1975 Quit date: 05/20/1985 Years since quittin.9 Smokeless tobacco: Never Vaping Use Vaping status: Never Used Substance Use Topics Alcohol use: Yes Comment: Caffeine intake : yes, coffee Drug use: Never Family History Problem Relation Name Age of Onset Diabetes Mother Kristin Melanoma Neg Hx Past Medical History: Diagnosis Date Abnormal x-ray of hand 09/13/2017 Xray abnormal Left wrist Age-related nuclear cataract of right eye 07/16/2023 Allergies Anxiety Atypical depressive disorder (CMS/HCC) Cataract 05/17/23 Depression (CMS/HCC) Epiretinal membrane (ERM) of right eye Essential hypertension, benign (CMS/HCC) History of diagnostic ultrasound 05/27/2018 U/[facility] negative Hypertension (CMS/HCC) Menopausal and postmenopausal disorder Unspecified Personal history of other medical treatment 1988 sphincter muscle repaired(1988) Pure hypercholesterolemia (CMS/HCC) Past Surgical History: Procedure Laterality Date CATARACT EXTRACTION W/ INTRAOCULAR LENS IMPLANT Right 07/19/2023 CATARACT EXTRACTION W/ INTRAOCULAR LENS IMPLANT Left 06/29/2023 COLONOSCOPY 02/2015 Dr. Mckinnon- Tubular Adenoma TONSILLECTOMY 1956 Visit Vitals BP 138/82 (BP Location: Left arm) Pulse 81 Resp 16 Ht 5' 7 Wt 151 lb 9.6 oz SpO2 97% BMI 23.74 kg/m Smoking Status Former BSA 1.8 m Review of Systems Constitutional: Negative for chills, fatigue and fever. Respiratory: Negative for cough, shortness of breath and wheezing. Cardiovascular: Negative for chest pain, palpitations and leg swelling. Gastrointestinal: Negative for abdominal pain, constipation, diarrhea, nausea and vomiting. Skin: Negative for rash. Objective Physical Exam Constitutional: General: She is not in acute distress. Appearance: Normal appearance. She is well-developed. HENT: Head: Normocephalic and atraumatic. Eyes: General: No scleral icterus. Conjunctiva/sclera: Conjunctivae normal. Cardiovascular: Rate and Rhythm: Normal rate and regular rhythm. Heart sounds: Normal heart sounds. No murmur heard. Pulmonary: Effort: Pulmonary effort is normal. No respiratory distress. Breath sounds: Normal breath sounds. No wheezing, rhonchi or rales. Skin: General: Skin is warm and dry. Neurological: General: No focal deficit present. Mental Status: She is alert and oriented to person, place, and time. Psychiatric: Mood and Affect: Mood normal. Behavior: Behavior normal. Assessment/Plan Diagnoses and all orders for this visit: Benign essential hypertension (CMS/HCC) BP improved on recheck. Continue current medication at this time. Will continue to monitor. Encouraged continue routine exercise and healthy diet. Encounter for screening mammogram for malignant neoplasm of breast - Bilateral screening mammogram with tomosynthesis; Future Provided patient with an order for an updated Mammogram. If results are negative/normal, will plan to continue with routine yearly screenings. Generalized anxiety disorder (CMS/HCC) - ALPRAZolam (Xanax) 0.5 MG tablet; Take 1 tablet (0.5 mg) by mouth 2 (two) times a day as needed for anxiety O[facility] report generated and reviewed. Patient is doing well with as needed use of the above. Refill provided at this time. Moderate recurrent major depression (CMS/HCC) - Brexpiprazole (Rexulti) 1 MG tablet; Take 1 mg by mouth Daily Has had weight gain since starting the Abilify. Will change to Rexulti 1 mg daily to see if mood is stable, with less side effects. Will recheck at her follow up appointment. She can let me know if the medication is too expensive, or if she has any concerns. Follow up in about 3 months (around 07/23/2024) for Medication Follow Up. documented in this encounter [facility] 01-03-2024 History of Presen t illness Narrative Images from the original note were not included. HPI Med Refill Additional comments: Alprazolam Last edited by Sylvia Salcido LPN on 01/03/2024 11:26 AM. Subjective Patient ID: Suleman Fry is a 68 y.o. female who presents for anxiety. Suleman is present today for follow up anxiety. She is currently on Alprazolam as needed and is working well for her. States cold symptoms x 1 week. Using Mucinex with some relief. Symptoms are improving. Just wants to make sure it isn't in her chest. Also took Claritin D this morning which has alleviated the sinus pressure. Getting up 4-5 times a a night to use the restroom. Takes the Oxybutynin in the morning. Tries to walk 2 miles a day. Current Outpatient Medications on File Prior to Visit Medication Sig Dispense Refill albuterol HFA (ProAir HFA) 90 mcg/act inhaler Inhale 2 puffs every 4 (four) hours if needed for wheezing or shortness of breath. 18 g 5 ARIPiprazole (Abilify) 5 MG tablet Take 1.5 tablets (7.5 mg) by mouth in the morning. 45 tablet 11 b complex vitamins capsule Take 1 capsule by mouth Daily buPROPion SR (Wellbutrin SR) 150 MG 12 hr tablet TAKE 1 TABLET BY MOUTH TWICE A DAY 180 tablet 3 calcium carbonate-vitamin D (Calcium 600+D3) 600-200 MG-UNIT tablet every 12 (twelve) hours. cholecalciferol (Vitamin D-3) 50 MCG (2000 UT) capsule 1 capsule 1 (one) time each day at the same time. citalopram (CeleXA) 40 MG tablet TAKE 1 TABLET BY MOUTH EVERY DAY FOR 100 DAYS 90 tablet 4 ezetimibe-simvastatin (Vytorin) 10-40 MG tablet TAKE 1 TABLET BY MOUTH EVERY DAY FOR 90 DAYS 100 tablet 3 fluticasone (Flonase) 50 MCG/ACT nasal spray USE 1 SPRAY IN EACH NOSTRIL ONCE EVERYDAY AT THE SAME TIME 16 mL 5 irbesartan-hydroCHLOROthiazide (Avalide) 150-12.5 MG tablet TAKE 1 TABLET BY MOUTH EVERY DAY FOR 90 DAYS 100 tablet 3 loratadine (Claritin) 10 MG tablet 1 (one) time each day at the same time. Magnesium 400 MG capsule Take 1 tablet by mouth 1 (one) time each day Multiple Vitamin (MULTIVITAMINS PO) Take 1 tablet by mouth 1 (one) time each day. omeprazole (PriLOSEC) [address] capsule TAKE 1 CAPSULE BY MOUTH EVERY DAY 90 capsule 4 oxybutynin XL (Ditropan-XL) 10 MG 24 hr tablet TAKE 1 TABLET BY MOUTH EVERY DAY FOR 100 DAYS 100 tablet 3 [DISCONTINUED] ALPRAZolam (Xanax) 0.5 MG tablet Take 1 tablet (0.5 mg) by mouth 2 (two) times a day as needed for anxiety 60 tablet 0 [DISCONTINUED] hydroCHLOROthiazide (HYDRODiuril) 12.5 MG tablet TAKE 1 TABLET BY MOUTH EVERY DAY IN THE MORNING FOR 90 DAYS 90 tablet 3 No current facility-administered medications on file prior to visit. I have reviewed and reconciled the history and medication list with the patient today. Allergies Allergen Reactions Penicillins Rash Social History Tobacco Use Smoking status: Former Current packs/day: 0.00 Average packs/day: 2.0 packs/day for 10.1 years (20.1 ttl pk-yrs) Types: Cigarettes Start date: 04/27/1975 Quit date: 05/20/1985 Years since quittin.6 Smokeless tobacco: Never Vaping Use Vaping status: Never Used Substance Use Topics Alcohol use: Yes Comment: Caffeine intake : yes, coffee Drug use: Never Family History Problem Relation Name Age of Onset Diabetes Mother Kristin Melanoma Neg Hx Past Medical History: Diagnosis Date Abnormal x-ray of hand 09/13/2017 Xray abnormal Left wrist Age-related nuclear cataract of right eye 07/16/2023 Allergies Anxiety Atypical depressive disorder (CMS/HCC) Cataract 05/17/23 Depression (CMS/HCC) Epiretinal membrane (ERM) of right eye Essential hypertension, benign (CMS/HCC) History of diagnostic ultrasound 05/27/2018 [facility] of negative Hypertension (CMS/HCC) Menopausal and postmenopausal disorder Unspecified Personal history of other medical treatment 1988 sphincter muscle repaired(1988) Pure hypercholesterolemia (CMS/HCC) Past Surgical History: Procedure Laterality Date CATARACT EXTRACTION W/ INTRAOCULAR LENS IMPLANT Right 07/19/2023 CATARACT EXTRACTION W/ INTRAOCULAR LENS IMPLANT Left 06/29/2023 COLONOSCOPY 02/2015 Dr. Mckinnon- Tubular Adenoma TONSILLECTOMY 1956 Visit Vitals BP 122/76 Pulse 80 Resp 16 Ht 5' 7 Wt 144 lb 9.6 oz SpO2 98% BMI 22.65 kg/m Smoking Status Former BSA 1.76 m Review of Systems Constitutional: Negative for chills, fatigue and fever. HENT: Positive for congestion and rhinorrhea. Negative for ear pain and sore throat. Respiratory: Positive for cough. Negative for shortness of breath and wheezing. Cardiovascular: Negative for chest pain, palpitations and leg swelling. Gastrointestinal: Negative for abdominal pain, constipation, diarrhea, nausea and vomiting. Skin: Negative for rash. Objective Physical Exam Constitutional: General: She is not in acute distress. Appearance: Normal appearance. She is well-developed. HENT: Head: Normocephalic and atraumatic. Right Ear: Ear canal normal. Tympanic membrane is injected. Left Ear: Tympanic membrane is not injected. Nose: Right Turbinates: Swollen. Left Turbinates: Swollen. Mouth/Throat: Mouth: Mucous membranes are moist. Pharynx: No posterior oropharyngeal erythema. Comments: Voice is hoarse Eyes: General: No scleral icterus. Conjunctiva/sclera: Conjunctivae normal. Cardiovascular: Rate and Rhythm: Normal rate and regular rhythm. Heart sounds: Normal heart sounds. No murmur heard. Pulmonary: Effort: Pulmonary effort is normal. No respiratory distress. Breath sounds: Normal breath sounds. No wheezing, rhonchi or rales. Comments: Occasional dry cough Lymphadenopathy: Cervical: No cervical adenopathy. Skin: General: Skin is warm and dry. Neurological: General: No focal deficit present. Mental Status: She is alert and oriented to person, place, and time. Psychiatric: Mood and Affect: Mood normal. Behavior: Behavior normal. Assessment/Plan Diagnoses and all orders for this visit: Benign essential hypertension (CMS/HCC) Patient's blood pressure is currently well controlled. Continue with current medications and I will continue to monitor. Goal BP remains less than 130/80. Generalized anxiety disorder (CMS/HCC) - ALPRAZolam (Xanax) 0.5 MG tablet; Take 1 tablet (0.5 mg) by mouth 2 (two) times a day as needed for anxiety Medication choice and dosage is appropriate for patient's current medical conditions. Patient will continue to be required to be seen in our office at least every three months for monitoring. At each follow up visit I will reassess the patient's need for the medication. Patient is to have this medication prescribed only through this office. Failure to follow the rules and regulations will result in tapering and discontinuation of medications if applicable. Patient verbalized understanding. OARRS Report was reviewed for this patient. Acute cough - predniSONE (Deltasone) 10 MG tablet; Take 1 tablet (10 mg) by mouth in the morning and 1 tablet (10 mg) before bedtime. Do all this for 5 days. Start above as prescribed. As all of her symptoms are improving, likely viral and should be self-limiting. Contact office if no improvement over the next week. Take Prednisone with food. Can continue OTC prn. Taking Oxybutynin in the morning currently. Change Oxybutynin to before bed. Stop extra hydrochlorothiazide dosage. Continue taking Avalide in the morning as prescribed. If nocturia does not improve, she is to contact the office. Could consider Myrbetriq in the future if needed. Follow up in about 3 months (around 04/03/2024) for Medication Follow Up. documented in this encounter [facility] 05-31-2023 History of Presen t illness Narrative HPI Med Refill Additional comments: Alprazolam Last edited by Sylvia Salcido LPN on 05/31/2023 3:06 PM. Subjective Patient ID: Suleman Fry is a 68 y.o. female who presents for follow up anxiety and hypertension. Suleman is present today for follow up anxiety. She is currently on Alprazolam and is working well for her. Scheduled on 06/28 cataract surgery for left eye Scheduled on 07/18 cataract surgery for right eye. Denies concerns regarding her BP. Current Outpatient Medications on File Prior to Visit Medication Sig Dispense Refill albuterol HFA (ProAir HFA) 90 mcg/act inhaler Inhale 2 puffs every 4 (four) hours if needed for wheezing or shortness of breath. 18 g 5 ALPRAZolam (Xanax) 0.5 MG tablet Take 0.5 mg by mouth every 12 (twelve) hours. ARIPiprazole (Abilify) 5 MG tablet Take 1.5 tablets (7.5 mg) by mouth in the morning. 45 tablet 11 buPROPion SR (Wellbutrin SR) 150 MG 12 hr tablet Take 150 mg by mouth in the morning and 150 mg before bedtime. calcium carbonate-vitamin D (Calcium 600+D3) 600-200 MG-UNIT tablet every 12 (twelve) hours. cholecalciferol (Vitamin D-3) 50 MCG (2000 UT) capsule 1 capsule 1 (one) time each day at the same time. citalopram (CeleXA) 40 MG tablet 1 (one) time each day at the same time. ezetimibe-simvastatin (Vytorin) 10-40 MG tablet TAKE 1 TABLET BY MOUTH EVERY DAY FOR 90 DAYS 100 tablet 3 fluticasone (Flonase) 50 MCG/ACT nasal spray USE 1 SPRAY IN EACH NOSTRIL ONCE EVERYDAY AT THE SAME TIME 16 mL 5 hydroCHLOROthiazide (HYDRODiuril) 12.5 MG tablet TAKE 1 TABLET BY MOUTH EVERY DAY IN THE MORNING FOR 90 DAYS 90 tablet 3 irbesartan-hydroCHLOROthiazide (Avalide) 150-12.5 MG tablet TAKE 1 TABLET BY MOUTH EVERY DAY FOR 90 DAYS 100 tablet 3 ketorolac (Acular) 0.5 % ophthalmic solution Administer 1 drop into affected eye(s) in the morning and 1 drop before bedtime. 5 mL 1 loratadine (Claritin) 10 MG tablet 1 (one) time each day at the same time. Multiple Vitamin (MULTIVITAMINS PO) Take 1 tablet by mouth 1 (one) time each day. omeprazole (PriLOSEC) [address] capsule 1 capsule 1 (one) time each day at the same time. oxybutynin XL (Ditropan-XL) 10 MG 24 hr tablet TAKE 1 TABLET BY MOUTH EVERY DAY FOR 100 DAYS 100 tablet 3 prednisoLONE acetate (Pred-Forte) 1 % ophthalmic suspension Administer 1 drop into both eyes in the morning and 1 drop at noon and 1 drop in the evening and 1 drop before bedtime. Do all this for 14 days. 5 mL 1 [DISCONTINUED] hydroCHLOROthiazide (HYDRODiuril) 12.5 MG tablet 1 (one) time each day at the same time. [DISCONTINUED] ofloxacin (Ocuflox) 0.3 % ophthalmic solution Administer 1 drop into the right eye 5 (five) times a day for 1 day Starting 1 day before surgery, continue after surgery as directed 5 mL 1 No current facility-administered medications on file prior to visit. Allergies Allergen Reactions Penicillins Rash Social History Tobacco Use Smoking status: Former Types: Cigarettes Smokeless tobacco: Never Vaping Use Vaping Use: Never used Substance Use Topics Alcohol use: Yes Comment: Caffeine intake : yes, coffee Drug use: Never Family History Problem Relation Name Age of Onset Diabetes Mother Melanoma Neg Hx Past Medical History: Diagnosis Date Abnormal x-ray of hand 09/13/2017 Xray abnormal Left wrist Allergies Anxiety Atypical depressive disorder (CMS/HCC) Depression (CMS/HCC) Epiretinal membrane (ERM) of right eye Essential hypertension, benign (CMS/HCC) History of diagnostic ultrasound 05/27/2018 U/S of negative Hypertension (CMS/HCC) Menopausal and postmenopausal disorder Unspecified Personal history of other medical treatment 1988 sphincter muscle repaired(1988) Pure hypercholesterolemia (CMS/HCC) Past Surgical History: Procedure Laterality Date COLONOSCOPY 02/2015 Dr. Mckinnon- Tubular Adenoma TONSILLECTOMY 1956 Visit Vitals BP 116/82 Pulse 82 Resp 16 Wt 150 lb SpO2 98% BMI 23.49 kg/m Smoking Status Former BSA 1.79 m Review of Systems Constitutional: Negative for chills, fatigue and fever. Respiratory: Negative for cough, shortness of breath and wheezing. Cardiovascular: Negative for chest pain and palpitations. Gastrointestinal: Negative for abdominal pain, constipation, diarrhea, nausea and vomiting. Skin: Negative for rash. Objective Physical Exam Constitutional: General: She is not in acute distress. Appearance: Normal appearance. She is well-developed. HENT: Head: Normocephalic and atraumatic. Eyes: General: No scleral icterus. Conjunctiva/sclera: Conjunctivae normal. Cardiovascular: Rate and Rhythm: Normal rate and regular rhythm. Heart sounds: Normal heart sounds. No murmur heard. Pulmonary: Effort: Pulmonary effort is normal. No respiratory distress. Breath sounds: Normal breath sounds. No wheezing, rhonchi or rales. Skin: General: Skin is warm and dry. Neurological: General: No focal deficit present. Mental Status: She is alert and oriented to person, place, and time. Psychiatric: Mood and Affect: Mood normal. Behavior: Behavior normal. Assessment/Plan Diagnoses and all orders for this visit: Benign essential hypertension (CMS/HCC) Patient's blood pressure is currently well controlled. Continue with current medications and I will continue to monitor. She has lost 10 pounds since her last appt. Patient is regularly walking and using an exercise bike. Encouraged her to continue to exercise routinely and maintain her healthy weight. Generalized anxiety disorder ([facility]) - ALPRAZolam (Xanax) 0.5 MG tablet; Take 1 tablet (0.5 mg) by mouth 2 (two) times a day as needed for anxiety OARRS reviewed, Rx sent into patient's pharmacy. She is doing very well with prn usage of the above. Mood well controlled on current medications. Will continue to monitor every three months. Age-related nuclear cataract of both eyes Patient is scheduled for cataract removal. Follow up in about 3 months (around 08/29/2023) for Medicare Wellness Visit. documented in this encounter [facility] 05-27-2023 Note Right Eye Quality was good. Scan locations included subfoveal. Progression has worsened. Findings include epiretinal membrane, lamellar hole. Left Eye Quality was good. Scan locations included subfoveal. Progression has been stable. Findings include normal observations. [facility] 05-27-2023 History of Presen t illness Narrative Images from the original note were not included. Subjective Patient ID: Suleman Fry is a 68 y.o. female. Chief Complaint Cataract HPI Cataract In both eyes. Associated symptoms include blurred vision, glare and haloes. Severity is moderate. Onset was gradual. Frequency is constant. Context: distance vision, near vision, reading, driving and night driving. Since onset it is gradually worsening. Affected activities include working on the computer, night driving, watching TV and daily activities. Treatments tried include eye drops and glasses. Response to treatment was mild improvement. Comments Pt was referred by Dr. Yeboah for Cataract Evaluation. Pt also mentioned having a problem with Macula right eye (OD) No pain, vision has gradually declined left eye (OS)>right eye (OD) (distance), seeing floaters right eye (OD), seeing star bursts when looking at lights, not using drops. Pt states that left eye (OS) doesn't see as good as it used to. Last edited by Jeyson Coe DO on 05/27/2023 11:43 AM. Current Outpatient Medications (Ophthalmic Agents) Medication Sig Dispense Refill ketorolac (Acular) 0.5 % ophthalmic solution Administer 1 drop into affected eye(s) in the morning and 1 drop before bedtime. 5 mL 1 ofloxacin (Ocuflox) 0.3 % ophthalmic solution Administer 1 drop into the right eye 5 (five) times a day for 1 day Starting 1 day before surgery, continue after surgery as directed 5 mL 1 prednisoLONE acetate (Pred-Forte) 1 % ophthalmic suspension Administer 1 drop into both eyes in the morning and 1 drop at noon and 1 drop in the evening and 1 drop before bedtime. Do all this for 14 days. 5 mL 1 No current facility-administered medications for this visit. (Ophthalmic Agents) Current Outpatient Medications (Other) Medication Sig Dispense Refill albuterol HFA (ProAir HFA) 90 mcg/act inhaler Inhale 2 puffs every 4 (four) hours if needed for wheezing or shortness of breath. 18 g 5 ALPRAZolam (Xanax) 0.5 MG tablet Take 0.5 mg by mouth every 12 (twelve) hours. ARIPiprazole (Abilify) 5 MG tablet Take 1.5 tablets (7.5 mg) by mouth in the morning. 45 tablet 11 buPROPion SR (Wellbutrin SR) 150 MG 12 hr tablet Take 150 mg by mouth in the morning and 150 mg before bedtime. calcium carbonate-vitamin D (Calcium 600+D3) 600-200 MG-UNIT tablet every 12 (twelve) hours. cholecalciferol (Vitamin D-3) 50 MCG (2000 UT) capsule 1 capsule 1 (one) time each day at the same time. citalopram (CeleXA) 40 MG tablet 1 (one) time each day at the same time. ezetimibe-simvastatin (Vytorin) 10-40 MG tablet TAKE 1 TABLET BY MOUTH EVERY DAY FOR 90 DAYS 100 tablet 3 fluticasone (Flonase) 50 MCG/ACT nasal spray USE 1 SPRAY IN EACH NOSTRIL ONCE EVERYDAY AT THE SAME TIME 16 mL 5 hydroCHLOROthiazide (HYDRODiuril) 12.5 MG tablet 1 (one) time each day at the same time. irbesartan-hydroCHLOROthiazide (Avalide) 150-12.5 MG tablet TAKE 1 TABLET BY MOUTH EVERY DAY FOR 90 DAYS 100 tablet 3 loratadine (Claritin) 10 MG tablet 1 (one) time each day at the same time. Multiple Vitamin (MULTIVITAMINS PO) Take 1 tablet by mouth 1 (one) time each day. omeprazole (PriLOSEC) [address] capsule 1 capsule 1 (one) time each day at the same time. oxybutynin XL (Ditropan-XL) 10 MG 24 hr tablet TAKE 1 TABLET BY MOUTH EVERY DAY FOR 100 DAYS 100 tablet 3 No current facility-administered medications for this visit. (Other) Past Medical History: Diagnosis Date Abnormal x-ray of hand 09/13/2017 Xray abnormal Left wrist Allergies Anxiety Atypical depressive disorder (CMS/HCC) Depression (CMS/HCC) Epiretinal membrane (ERM) of right eye Essential hypertension, benign (CMS/HCC) History of diagnostic ultrasound 05/27/2018 U/S of negative Hypertension (CMS/HCC) Menopausal and postmenopausal disorder Unspecified Personal history of other medical treatment 1988 sphincter muscle repaired(1988) Pure hypercholesterolemia (CMS/HCC) Allergies Allergen Reactions Penicillins Rash Review of Systems Constitutional: Negative. HENT: Negative. Eyes: Negative. Respiratory: Negative. Cardiovascular: Negative. Gastrointestinal: Negative. Genitourinary: Negative. Musculoskeletal: Negative. Skin: Negative. Neurological: Negative. Psychiatric/Behavioral: Negative. Hematological: Negative. Endocrine: Negative. Allergic/Immunologic: Negative. Objective Base Eye Exam Visual Acuity (Snellen - Linear) Right Left Dist cc 20/50 +2 20/50 -1 Correction: Glasses Tonometry (Applanation, 11:44 AM) Right Left Pressure 19 20 Pupils Pupils Right PERRL Left PERRL Visual [place] Left Right Full Full Extraocular Movement Right Left Full Full Neuro/Psych Oriented x3: Yes Dilation Both eyes: 1.0% Mydriacyl @ 11:14 AM Additional Tests Keratometry K1 [place] K2 [place] Mires Right 46.50 064 47.50 47.25 154 Left 45.75 122 46.50 032 Glare Testing High Right 20/200 Left 20/200 Slit Lamp and Fundus Exam External Exam Right Left External Normal Normal Slit Lamp Exam Right Left Lids/Lashes Blepharitis, Ptosis Blepharitis, Ptosis Conjunctiva/Sclera White and quiet White and quiet Cornea Decreased tear film Decreased tear film Anterior Chamber Deep and quiet Deep and quiet Iris Round and reactive Round and reactive Lens 2+ Nuclear sclerosis 3+ Nuclear sclerosis, 1+ Posterior subcapsular cataract Anterior Vitreous Normal Normal Fundus Exam Right Left Macula Epiretinal membrane Refraction Wearing Rx Sphere Cylinder [place] Add Right -8.00 -1.00 076 +2.25 Left -9.75 -2.50 146 +2.25 Manifest Refraction (Auto) Sphere Cylinder [place] Right -9.00 -1.25 054 Left -14.75 -1.75 148 Final Rx Sphere Cylinder [place] Dist [place] Right -8.50 -1.25 065 20/40 Left -12.50 -1.75 148 20/40 Expiration Date: 05/27/2024 Assessment/Plan Assessment/Plan Diagnoses and all orders for this visit: Age-related nuclear cataract of both eyes - Visually Significant Cataract, OU: I discussed the risks, benefits, alternatives, and expectations of cataract surgery. A complete ophthalmic exam was performed and it was determined that the cataracts were a primary source of vision decline, affecting activities of daily living, necessitating removal. Limited vision post-surgery may occur with pre-existing conditions affecting other areas of the eye or the brain was explained and the patient displayed an understanding. The overall objective is to improve ADLs, not eliminate glasses or restore vision to 20/20. Tests were reviewed - the different lens options were explained including the [id number] fees for any upgrades. Intraocular lens (IOL) selection may be altered either prior to or during the procedure based on the doctor's discretion including reverting to a traditional intraocular lens (IOL). They understood that there will exist the potential of glasses prescription need post surgery for near, distance or possibly both. The patient stated a full understanding and a desire to proceed with the procedure. The patient received cataract measurements and had any additional questions answered. - A complete exam was performed including a physical exam: General: AAOx3 and NAD, Lungs: Clear, Heart: RRR, Abdomen: S/NT/ND, Extremities: no pitting edema. - Coordination of care will be shared with Dr. Yeboah. Cataract Surgery for OS will take place - 06/28 and OD - 07/18. Epiretinal membrane (ERM) of right eye - Condition d/w pt. OCT evaluated. I don't feel any urgency at this time that she needs to see Retina. - She also described needing scheduled with me for a visual field. The only item that I can see on the referral letter that would pertain to this is an optic nerve hemorrhage left eye (OS)? There was no pathology present today and I reassured her that this can simply be monitored. documented in this encounter [facility] Evaluation note Diagnosis Age-related nuclear cataract of both eyes- Primary Epiretinal membrane (ERM) of right eye [facility] Diagnosis Benign essential hypertension (CMS/HCC)- Primary Essential hypertension, benign Generalized anxiety disorder (CMS/HCC) Generalized anxiety disorder Age-related nuclear cataract of both eyes [facility] Diagnosis Benign essential hypertension (CMS/HCC)- Primary Essential hypertension, benign Generalized anxiety disorder (CMS/HCC) Generalized anxiety disorder Acute cough [facility] Diagnosis Benign essential hypertension (CMS/HCC)- Primary Essential hypertension, benign Encounter for screening mammogram for malignant neoplasm of breast Generalized anxiety disorder (CMS/HCC) Generalized anxiety disorder Moderate recurrent major depression (CMS/HCC) Major depressive disorder, recurrent episode, moderate [facility] Diagnosis Moderate recurrent major depression (CMS/HCC) Major depressive disorder, recurrent episode, moderate [facility] Diagnosis Cold sore- Primary Herpes simplex without mention of complication Seborrheic keratosis Lentigines Capillary angioma Nevus, non-neoplastic Onychomycosis Dermatophytosis of nail documented in this encounter [facility] Summary Purpose Family History No Family History Records FoundNo Family History Records FoundNo Family History Records Found Advance Directives No Advanced Directives Records FoundNo Advanced Directives Records FoundNo Advanced Directives Records Found Additional Source Comments INFORMATION SOURCE (unrecogn ized section and content) DATE CREATED AUTHOR 01/27/2021 [facility] DATE CREATED AUTHOR AUTHOR'S ORGANIZ ATION 04/21/2022 [facility] DATE CREATED AUTHOR AUTHOR'S ORGANIZ ATION 05/23/2024 [facility] d[facility] Specialists EPIC Care Teams (unrecognized sec tion and content) Wax Bleacher Relationship Specialty Start Date End Date Kavita Salcido PA [address] [place] [address] PCP - General Family Medicine 08/31/22 María De La Cruz MD [address] [place] [address] PCP - ACO Reach 09/10/22 Wax Bleacher Relationship Specialty Start Date End Date Kavita Salcido PA [address] [place] [address] PCP - General Family Medicine 08/31/22 María De La Cruz MD [address] [place] [address] PCP - ACO Reach 09/10/22 Wax Bleacher Relationship Specialty Start Date End Date Kavita Salcido PA [address] [facility] [address] [place] [address] PCP - General Family Medicine 08/31/22 María De La Cruz MD [address] [place] [address] PCP - ACO Reach 09/10/22 Wax Bleacher Relationship Specialty Start Date End Date Kvaita Salcido PA [address] [facility] [address] [place] [address] PCP - General Family Medicine 08/31/22 María De La Cruz MD [address] [place] [address] PCP - ACO Reach 09/10/22 Wax Bleacher Relationship Specialty Start Date End Date María De La Cruz MD [address] [place] [address] PCP - General Family Medicine 09/08/23 María De La Cruz MD [address] [place] [address] PCP - ACO Reach 08/18/23 Kavita Salcido PA [address] [place] [address] Physician Chemical Process Analyst Family Medicine 09/08/23 Wax Bleacher Relationship Specialty Start Date End Date María De La Cruz MD [address] [place] [address] PCP - General Family Medicine 09/08/23 María De La Cruz MD [address] [place] [address] PCP - ACO Reach 08/18/23 Kavita Salcido PA [address] [place] [address] Physician Chemical Process Analyst Family Medicine 09/08/23 Wax Bleacher Relationship Specialty Start Date End Date María De La Cruz MD [address] [place] [address] PCP - General Family Medicine 09/08/23 María De La Cruz MD [address] [place] [address] PCP - ACO Reach 08/18/23 Kavita Salcido PA [address] [place] [address] Physician Chemical Process Analyst Family Medicine 09/08/23 Wax Bleacher Relationship Specialty Start Date End Date María De La Cruz MD [address] [facility] [address] [place] [address] PCP - General Family Medicine 09/08/23 María De La Cruz MD [address] [facility] [address] [place] [address] PCP - ACO Reach 08/18/23 Kavita Salcido PA [address] [facility] [address] [place] [address] Physician Chemical Process Analyst Family Medicine 09/08/23 Wax Bleacher Relationship Specialty Start Date End Date María De La Cruz MD [address] [facility] [address] [place] [address] PCP - General Family Medicine 09/08/23 María De LaC ruz MD [address] [facility] [address] [place] [address] PCP - ACO Reach 08/18/23 Kavita Salcido PA [address] [facility] [address] [place] [address] Physician Chemical Process Analyst Family Medicine 09/08/23 Reason for Visit (unrecogniz ed section and content) Reason Comments Cataract Reason Comments Med Refill Alprazolam FOR RECORDS PERTAINING TO PATIENTS WHO ARE OR HAVE BEEN ENROLLED IN A CHEMICAL DEPENDENCY/SUBSTANCEABUSE PROGRAM, SOME INFORMATION MAY BE OMITTED. This clinical summary was aggregated from multiple sources. Caution should be exercised in using it in the provision of clinical care. This summary normalizes information from multiple sources, and as a consequence, information in this document may materially change the coding, format and clinical context of patient data. In addition, data may be omitted in some cases. CLINICAL DECISIONS SHOULD BE BASED ON THE PRIMARY CLINICAL RECORDS. [employer] [facility]. provides no warranty or guarantee of the accuracy or completeness of information in this document.
== END 2024-05-29 09:58 | disposition home or self-care (01) ==
LOC: MAMMO 09:57
PROVIDERS: PCP Physician Assistant; Visit Provider Physician Assistant
DX: Z12.31 Encounter for screening mammogram for malignant neoplasm of breast (principal); Z80.51 Family history of malignant neoplasm of kidney; Z80.8 Family history of malignant neoplasm of other organs or systems
CPT/HCPCS: 77063; 77067